=== PATIENT | female | born 1940 | race Caucasian/White ===

== ENCOUNTER 2024-03-11 13:08 | Emergency (ER) | payer BC | END 2024-03-11 16:20 | disposition home or self-care (01) | LOC: LL.ED 13:08 | DX: S52.531A Colles' fracture of right radius, initial encounter for closed fracture (principal); Z79.899 Other long term (current) drug therapy; W01.0XXA Fall on same level from slipping, tripping and stumbling without subsequent striking against object, initial encounter | CPT/HCPCS: 29125; 70450; 73110-RT; 99283; 99284-25 ==